=== PATIENT | female | born 1995 | race Caucasian/White ===

== ENCOUNTER 2021-06-05 01:35 | Emergency (ER) | payer OTHER ==
[~2021-06-05 01:35] MED LIST: COLACE 100MG C100 MG PO; FERROUS SULFAT325 MG PO; IBU600 MG PO; IBUPROFEN600 MG PO; INVANZ 1 GM VIAL1 GM IV; OMNICEF 300 MG300 MG PO; ZOFRAN ODT 4 MG4 MG SL
[2021-06-05 01:59] LABS: HEMOGLOBIN 11.9 gm/dl (12.3-15.3); RED BLOOD COUNT 4.73 M/UL (4.00-5.10); WHITE BLOOD COUNT 9.3 K/UL (4.5-11.0)
[2021-06-05 02:40] LABS: BUN/CREATININE RATIO 10 (0-10)
== END 2021-06-05 04:50 | disposition home or self-care (01) ==
LOC: ER1 01:35
PROVIDERS: Physician Assistant Medical
DX: R07.89 Other chest pain (principal); E87.6 Hypokalemia; F17.290 Nicotine dependence, other tobacco product, uncomplicated
CPT/HCPCS: 71045; 80053; 80307; 81001; 82550; 82553; 83874; 84439; 84443; 84484; 84703; 85025; 85379; 93005; 96374; 99285; J2405; J7030

== ENCOUNTER 2021-06-08 17:34 | Emergency (ER) | payer OTHER ==
[2021-06-08 18:59] LABS: HEMOGLOBIN 11.6 gm/dl (12.3-15.3); RED BLOOD COUNT 4.7 M/UL (4.00-5.10); WHITE BLOOD COUNT 7.5 K/UL (4.5-11.0)
[2021-06-08 19:26] LABS: BUN/CREATININE RATIO 11 (0-10)
[2021-06-08] MEDS ORDERED: IBUPROFEN600 MG PO (21:55)
[2021-06-08] MEDS ORDERED: VISTARIL 50 MG50 MG PO (21:55)
== END 2021-06-08 22:00 | disposition home or self-care (01) ==
LOC: ER1 17:34
PROVIDERS: Emergency Medicine
DX: R07.89 Other chest pain (principal); R00.2 Palpitations; F17.200 Nicotine dependence, unspecified, uncomplicated
CPT/HCPCS: 71045; 80053; 82550; 82553; 83874; 84484; 84703; 85025; 93005; 99285; Q0177

== ENCOUNTER → 2021-06-22 | Outpatient (CLI) | payer OTHER ==
[~2021-06-22] MED LIST changes: +VISTARIL 50 MG50 MG PO
== END ==
LOC: HEART 5 15:20
DX: R00.0 Tachycardia, unspecified (principal)

== ENCOUNTER → 2021-08-19 | Outpatient (CLI) | payer OTHER | LOC: ECHO 08-18 08:30 → HEART A 08-18 08:30 → ECHO 13:15 → EDSTATUS 13:15 → ECHO 13:41 | DX: R07.9 Chest pain, unspecified (principal); R00.2 Palpitations | CPT/HCPCS: ECHO; 93017; 93306 ==

== ENCOUNTER 2021-10-24 23:49 | Emergency (ER) | payer OTHER ==
[2021-10-25 00:26] LABS: HEMOGLOBIN 12.5 gm/dl (12.3-15.3); RED BLOOD COUNT 5.11 M/UL (4.00-5.10); WHITE BLOOD COUNT 9.7 K/UL (4.5-11.0)
[2021-10-25 01:02] LABS: BUN/CREATININE RATIO 10 (0-10)
[2021-10-25] MEDS ORDERED: K-TAB ER20 MEQ PO (03:11)
[2021-10-25] MEDS ORDERED: TOPROL XL25 MG PO (03:11)
== END 2021-10-25 03:30 | disposition home or self-care (01) ==
LOC: ER1 23:49
PROVIDERS: Physician Assistant
DX: I47.1 Supraventricular tachycardia (principal); E87.6 Hypokalemia; D64.9 Anemia, unspecified; F17.290 Nicotine dependence, other tobacco product, uncomplicated
CPT/HCPCS: 71045; 80053; 82550; 82553; 83735; 84439; 84443; 84484; 85025; 93005; 99285

== ENCOUNTER 2021-11-02 21:40 | Emergency (ER) | payer OTHER ==
[~2021-11-02 21:40] MED LIST changes: +K-TAB ER20 MEQ PO; +TOPROL XL25 MG PO
[2021-11-02 22:08] LABS: HEMOGLOBIN 11.3 gm/dl (12.3-15.3); RED BLOOD COUNT 4.58 M/UL (4.00-5.10); WHITE BLOOD COUNT 7.8 K/UL (4.5-11.0)
[2021-11-02 22:34] LABS: BUN/CREATININE RATIO 15 (0-10)
== END 2021-11-03 04:39 | disposition home or self-care (01) ==
LOC: ER1 21:40
PROVIDERS: Physician Assistant
DX: R07.89 Other chest pain (principal); R00.2 Palpitations; Z87.891 Personal history of nicotine dependence
CPT/HCPCS: 71045; 80053; 82550; 82553; 83735; 84439; 84443; 84484; 85025; 85379; 93005; 99285

== ENCOUNTER 2021-11-28 00:32 | Emergency (ER) | payer OTHER ==
[2021-11-28 02:32] LABS: HEMOGLOBIN 11.7 gm/dl (12.3-15.3); RED BLOOD COUNT 4.62 M/UL (4.00-5.10); WHITE BLOOD COUNT 7.8 K/UL (4.5-11.0)
[2021-11-28 03:12] LABS: BUN/CREATININE RATIO 11 (0-10)
== END 2021-11-28 03:30 | disposition home or self-care (01) ==
LOC: ER1 00:32
PROVIDERS: Student in an Organized Health Care Education/Training Program
DX: R00.2 Palpitations (principal); F17.290 Nicotine dependence, other tobacco product, uncomplicated
CPT/HCPCS: 71045; 80053; 82550; 82553; 84484; 85025; 93005; 99285